=== PATIENT | female | born 1960 | race Caucasian/White ===

== ENCOUNTER 2025-02-24 11:09 | Outpatient (AMB) | payer MEDICARE, BC, SELFPAY ==
--- NOTE | 2025-02-24 11:23 | MHC.OFFVIS ---
Intake Visit Reasons: 6 months follow up Accompanied by: Spouse Allergies Sulfa (Sulfonamide Antibiotics) Allergy (Unknown, Verified 02/24/25 11:50) Unknown Medication List - Last Reconciled 02/24/25 by Aaliyah Joy CNP aspirin 325 mg PO DAILY ipratropium-albuterol 20-100 mcg/actuation (Combivent Respimat) 1 puff inhalation DAILY latanoprost 0.005% 1 drp ophthalmic (eye) QPM primidone 50 mg PO DAILY propranolol 40 mg PO DAILY HPI Comments Details: She tripped and fell down stairs on 01/19/2025, fractured R ankle and required surgical repair on 01/28/2025, currently NWB in walking boot. Had some vertigo in 09/2024, decreased propranolol to once a day. Symptoms resolved and tremors were stable. Increased tremors since fall, worse with stress, when nervous, or with pain. Notices tremors more in the evening time when eating dinner. has noticed some tremors in right leg since the fall. No issues with mobility before fall, was walking up to 6-7 miles/day and hiking. No difficulty getting up from chair or turning in bed. She has had tremors in her hands that started more than 10 years ago and had slowly gotten worse to the point that it affected her handwriting, ability to eat soup, and do fine motor activity. She quit caffeine intake, but it did not make a difference. She has a history of tremor in her father, mother, sister and son. [facility] Medical History (Updated 02/24/25 @ 11:26 by Aaliyah Joy CNP) Benign familial tremor Family History (Updated 02/24/25 @ 11:27 by Aaliyah Joy CNP) Father Tremor Mother Tremor Sister Tremor Son Tremor Review of Systems Const Denies chills, Denies daytime sleepiness, Denies difficulty sleeping, Denies fatigue, Denies fever(s), Denies frequent falls, Denies headache(s), Denies increased appetite, Denies poor appetite, Denies snoring, Denies weakness, Denies weight gain and Denies weight loss Eyes Denies loss of vision ENT Denies vertigo, Denies dizziness, Denies headache(s) and Denies neck pain Card Denies chest pain at rest, Denies chest pain with activity, Denies syncope, Denies leg edema, Denies palpitations, Denies dyspnea and Denies dyspnea on exertion Resp Denies cough, Denies dyspnea, Denies dyspnea on exertion and Denies snoring GI Denies abdominal pain, Denies constipation, Denies heartburn, Denies diarrhea and Denies nausea Denies urinary frequency, Denies urinary incontinence and Denies urinary urgency Musc Denies abnormal gait, Denies back pain, Denies myalgias, Denies arthralgias, Denies neck pain, Denies numbness and Denies tingling Neuro Denies abnormal gait, Denies vertigo, Denies dizziness, Denies syncope, Denies frequent falls, Denies headache(s), Denies lack of coordination, Denies loss of vision, Denies memory loss, Denies numbness, Denies Other visual disturbances, Denies restless legs, Denies seizure-like activity, Denies tingling, Denies paresthesias, Reports tremor(s) and Denies weakness Psych Denies anxiety, Denies depression, Denies auditory hallucinations, Denies memory loss and Denies visual hallucinations Endo Denies fatigue and Denies palpitations Physical Exam Const Other: General Appearance:? normal, in no acute distress. Heart:? S1, S2 normal, no murmurs. Lungs:? clear anteriorly and posteriorly. Musculoskeletal:? normal. Extremities:? no edema. Psych:? alert, oriented, cognitive function intact, cooperative with exam. Neuro Other: Abnormal Neurological Findings:?Fine tremors high frequency, low amplitude on sustained position, L > R. In wheelchair, RLE walking boot. Mental Status: alert and oriented X 3. Normal attention, orientation, memory, and affect. Cranial Nerves: Pupils are equal, round, and reactive to light. External ocular muscles are intact. Visual hillman are full, no ptosis. Face is symmetrical, no facial weakness or droop. Facial sensations are normal. Tongue protrudes in midline. Palate elevates symmetrically. Shoulder shrugging is normal Motor Examination: Normal muscle tone, bulk and strength. No atrophy or fasciculations. No drift of the extended upper extremities. DTR 2+. Plantars are flexor. Sensory Exam: Normal light touch, temperature, pinprick, vibration, and joint-position sensations. Rhomberg sign is absent. Coordination: No ataxia. No titubation. Ukctmy-qz-yunp, wpdn-fqeh-edbx test, and rapid alternating movements were normal. Gait Exam: In wheelchair, RLE walking boot. Cerebellar Signs: Igrjsj-[id number]-bkhm is okay. Extrapyramidal System: Tremor as above. No rigidity with normal facial expressions. No bradykinesia. No bradyphrenia. Normal arm swing and posture. No propulsion or retropulsion. Speech: Normal. Assessment & Plan Assessment & Plan (1) Benign familial tremor: Code(s): G25.0 - Essential tremor Category: Medical Plan: Increase primidone 50mg 1 tablet twice a day. Continue propranolol 40mg 1 tablet daily. Medications: New primidone 50 mg PO BID 180 tabs 1RF 90 days Coding Level of Care Code Est Pt Level 4 (18472) Diagnoses Benign familial tremor G25.0
--- OUTSIDE RECORDS SUMMARY | 2025-02-24 11:54 | XMS_ITS | Encounter Summary ---
Author Organization [facility] [place] [address] Care Team Providers Care Forest Manager Name Role Phone Soren Buck Primary Care Provider [phone] Reason for Referral * Consultation (Routine) - Closed Specialty Diagnoses / Procedures Referred By Edouard viveros Referred To Contact Orthopedic Surgery Diagnoses Right ankle pain Soren Buck PA [address] [place] [address] Phone: tel: fax: Kushal Phoenix MD [address] [place] [address] [address] [place] [address] Phone: tel: fax: Referral ID Status Reason Start Date Expiration Date V isits Requested Visits Authorized [id number] Closed Specialty Services Required 02/13/2025 02/13/2026 1 1 Encounter Details Date Type Department Care Team (Late st Contact Info) Description 02/13/2025 Telephone Adult Medicine [facility] [address] [place] [address] Soren Buck PA [address] [place] [address] Social History Tobacco Use Types Packs/Day Years Used Date Smoking Tobacco: Never Smokeless Tobacco: Never Alcohol Use Standard Drinks/Week Comments Yes 0 (1 standard drink = 0.6 oz pur e alcohol) social Housing Instability Answer Date Recorde d Are you worried that in the next 2 months you may not have stable housing? No 01/14/2025 Food Access & Nutrition Answer Date Rec orded Do you have access to a vari ety of food including fruits and vegetables? No 01/14/2025 Access to Healthcare Answer Date Record ed Within the last 3 months, ho w many times did you visit the emergency department for your medical care? 0 07/28/2024 Health Literacy Answer Date Recorded How often do you need to hav e someone help you when you read instructions, pamphlets, or other written material from your doctor or pharmacy? Never 01/14/2025 Caregiver: How often do you need to have someone help you when you read instructions, pamphlets, or other written material from your doctor or pharmacy? Not on file 01/14/2025 Financial Risk Answer Date Recorded How hard is it for you to pa y for the very basics like food, housing, medical care, and air conditioning / heating? Not very hard 01/14/2025 Transportation Answer Date Recorded Has the lack of transportati on kept you from meetings, work, or from getting things needed for daily living? No Has the lack of transportati on kept you from medical appointments or from getting medications? No 01/14/2025 Social Isolation Answer Date Recorded How often do you feel lonely or isolated from th ose around you? Never 01/14/2025 Food Risk Answer Date Recorded Within the past 12 months we worried whether our food would run out before we got money to buy more. Never true 01/14/2025 Within the past 12 months th e food we bought just didn't last and we didn't have money to get more. Never true 01/14/2025 Dependent Care Answer Date Recorded Do you need help finding or paying for care for your loved ones. For example, director of early childhood education or elderly care for an older adult? No 01/14/2025 Education Answer Date Recorded Do you think completing more education or training, like finishing a GED, going to college, or learning a trade, would be helpful for you? N/A 07/28/2024 Employment and Income Answer Date Recor ded During the last four weeks, have you been actively looking for work? No 01/14/2025 Living Situation Answer Date Recorded What is your living situation? 0 01/14/2025 Interpersonal Safety Answer Date Record ed Physical Abuse 10/31/2024 Verbal Abuse 10/31/2024 Comments No Sex and Gender Information Value Date Recorded Sex Assigned at Female 10/30/2024 4:39 PM EDT Legal Sex Female 4:48 AM EST Gender Identity Female 10/30/2024 4:39 PM EDT Sexual Orientation Straight 10/30/2024 4: 39 PM EDT documented as of this encounter Progress Notes * Dia Knowles - 02/13/2025 9:33 AM EDT What insurance does the patient have today? Payor: @[email or web address] Referrals cannot be processed if the insurance is not accurate. If the insurance listed above is NO BILLING INFORMATION FOUND FOR THIS ENCOUNTER then the patients correct insurance must be obtainedand registered in [facility] or their referral can not be processed. Name of person calling to request this referral? Fax -[facility] Referred To Provider (Include first and last name): Kushal Phoenix NPI (if known): [id number] Order/Specialty requested orthopedics Chief Complaint (Note: This is not a body part or a procedure): M25.571 right ankle pain Has the patient seen provider for this problem/Dx before? Yes Referred To Provider Address: Referred To Provider Referred To Provider Does patient have an appointment scheduled?: no If yes, what is the date of the appointment?: Is this a retro request? Yes 01/28/25 Number of visits requested: 12 Is this appointment related to: MVA or worker compensation? no documented in this encounter Plan of Treatment Upcoming Encounters Date Type Department Care Team (Late st Contact Info) Description 03/13/2025 10:[address] Scan [address] [place] [address] 03/17/2025 9:30 AM EDT Office Visit Pulmonology - [place] [address] [facility] [address] [place] [address] Bree Turner MD [address] [place] [address] 09/17/2025 8:00 AM EST Appointment Radiology Department - [address] [phone] 01/15/2026 7:30 AM EDT Office Visit Adult [facility] - [address] [phone] Soren Buck PA [address] [place] [address] Scheduled Referrals Name Type Priority Associated Diagnoses Order Schedule Ambulatory referral to Orthopedic Outpatient Referral Routine Right ankle pain Expected: 02/13/2025, Expires: 02/13/2026 documented as of this encounter Visit Diagnoses Diagnosis Right ankle pain- Primary Pain in joint, ankle and foot documented in this encounter Additional Health Concerns Assessment Noted Time PHQ-9 Depression Total Score: 0 01/15/20 7:31 AM EDT A fall risk assessment has been complete d for the patient 01/14/2025 7:30 AM EDT documented as of this encounter Care Teams Forest Manager Relationship Specialty Start Date End Date Soren Buck PA [address] [place] [id number] PCP - General Internal Medicine 10/04/21 documented as of this encounter
--- OUTSIDE RECORDS SUMMARY | 2025-02-24 11:54 | XMS_ITS ---
Author Name [facility] Organization Unknown Care Team Organization Name Specialty Phone Email Start Date End Da te [facility] Soren Buck Primary Care 04/25/2023 [facility] Bebo Mcdaniels Primary Care 09/27/202202/20 [facility] Carmen, PROVIDER Primary Care 05/30/202202/20
== END 2025-02-24 11:50 | disposition home or self-care (01) ==
LOC: HO.HSM 11:09
PROVIDERS: PCP Internal Medicine; Referring Provider Physician Assistant Medical; Visit Provider Registered Nurse
DX: G25.0 Essential tremor (principal)
CPT/HCPCS: 99214

== ENCOUNTER → 2025-02-24 11:09 | Outpatient (BNVA) | payer MEDICARE, BC, SELFPAY | PROVIDERS: PCP Internal Medicine; Referring Provider Physician Assistant Medical; Visit Provider Registered Nurse | DX: G25.0 Essential tremor (principal); Z79.899 Other long term (current) drug therapy | CPT/HCPCS: 99212 ==

== ENCOUNTER 2025-07-20 08:25 | Outpatient (AMB) | payer MEDICARE, BC, SELFPAY ==
--- OUTSIDE RECORDS SUMMARY | 2025-07-20 08:30 | XMS_ITS | Clinical Summary ---
Author Organization [place] [id number] Address [address] [place] [phone] Phone Care Team Providers Care Weather Forcaster Name Role Phone Soren Buck Primary Care Provider [phone] Allergies Active Allergy Reactions Criticality Noted Date Comments Sulfa (Sulfonamide Antibiotics) 02/27/2008 Sulfa Drugs Other Reaction(s): Rash/Dermatitis Medications albuterol HFA (PROAIR HFA ; PROVENTIL HFA ; VENTOLIN HFA) 90 mcg/actuation inhaler Inhale 2 Puffs into the lungs every 4 hours as needed for Cough, Wheezing or Shortness of Breath. 4 Active multivitamin with minerals (DAILY MULTIVITAMIN-[place] NERALS ORAL) None Entered Acti ve docosahexaenoic acid/epa (FISH OIL ORAL) 1 tab at each meal Active latanoprost (XALATAN) 0.005 % ophthalmic solution INSTILL 1 DROP IN BOTH EYES DAILY AT BEDTIME 0 Active primidone (MYSOLINE) 50 mg tablet 2 tablets (100 mg total). Active propranoloL (INDERAL) 40 mg tablet Take 1 Tablet by mouth 2 times daily. Active polyethylene glycol (Golytely) 236-22.74-6.74 -5.86 gram solution Take 4L by mouth once for one dose. May substitue any PEG. Starting at 6PM the night before your procedure drink 1 8oz glasses at your own pace until you complete half of the gallon. Finish 2nd half of the gallon 5 hours before your procedure. 4000 mL 5 Active bisacodyL (DULCOLAX) 5 mg EC tablet Take 2 tablets by mouth right before beginning bowel prep. See instructions provided by the office 2 tablet 5 Active calcium carbonate-vitam in D3 600 mg-20 mcg (800 unit) tablet,chewable Chew. Acti ve ipratropium-alb uteroL (Combivent Respimat) 20-100 mcg/actuation inhaler Inhale 1 puff by mouth 2 (two) times a day. 3 g 4 5 12/17/19 26 Active Active Problems Problem Noted Date Diagnosed Date Thyroid nodule 01/14/2025 Assessment & Plan (01/14/2025 7:57 AM EDT): Orders: Lipid panel with reflex to direct LDL; Future Comprehensive metabolic panel; Future Tremor 01/14/2025 Assessment & Plan (01/14/2025 7:57 AM EDT): Orders: Lipid panel with reflex to direct LDL; Future Comprehensive metabolic panel; Future Osteopenia 07/03/2024 Assessment & Plan (01/14/2025 7:57 AM EDT): Orders: Lipid panel with reflex to direct LDL; Future Comprehensive metabolic panel; Future Vaginal atrophy 08/25/2020 Dry eyes 07/28/2010 Resolved Problems Problem Noted Date Diagnosed Date Resolved Date COPD, mild 04/14/2024 01/14/2025 Encounters Date Type Department Care Team Description 06/05/2025 Telephone Adult Medicine [address] [phone] Soren Buck PA from Last 3 Months Immunizations Immunization Administration Dates Next Due Influenza Quadravalent, MDCK , 0.5ml, preservative free (Flucelvax) 6mo and older 04/03/2023,05/12/2022,04/06/2020,2018,05/11/2017 Influenza Quadravalent, MDCK , 0.5ml, with preservative (Flucelvax) 6mo and older 04/20/2021,05/02/2018 Influenza trivalent, 0.5mL ( Fluad) 65yo and older 03/27/2024 Influenza trivalent, 0.5mL, preservative free (Fluarix; FluLaval; Fluzone) ages 6mo and older (Afluria) 3 years and older 04/22/2016,04/08/2015,04/30/2014,2012,08/04/2012,08/02/2012,06/28/2011 Influenza, Unspecified 05/02/2018 Pneumococcal conjugate 20 va lent (Prevnar 20, PCV 20) 2mo and older 01/14/2024 Td Tetanus diptheria (Tdvax) 7yo and older 04/17/2019 Tdap Tetanus diptheria acell ular pertussis (Boostrix; Adacel) 7yo and older 02/27/2008 Zoster recombinant (Shingrix ) 19yo and older 06/16/2019,04/17/2019 Surgical History Surgery Date Site/Laterality Comments COLONOSCOPY 02/25/09 PROCEDURE: HISTORICAL COLONOSCOPY; COMMENT: normal; repeat in ten years OTHER SURGICAL HISTORY 01/2013 PROCEDURE: HISTORY OTHER; COMMENT: left laser iridotomy for closed angle though no glaucoma COLONOSCOPY 10/31/2024 dr. fish hemorrhoid repeat 10 yrs Medical History Medical History Date Comments Dry eyes 07/28/2010 DX:Dry eyes COPD (chronic obstructive pu lmonary disease) ([facility] V24, [facility] V28) Osteopenia Familial tremor Family History Medical History Relation Name Comments COPD Father smoker Heart attack Maternal Grandfather Arthritis Mother Colon polyps Mother Heart failure Mother Lung cancer Mother smoker Colon polyps Sister Breast cancer Neg Hx Colon cancer Neg Hx Ovarian cancer Neg Hx Pancreatic cancer Neg Hx Prostate cancer Neg Hx Uterine cancer Neg Hx Relation Name Status Comments Father Maternal Grandfather Mother Sister Alive Social History Tobacco Use Types Packs/Day Years Used Date Smoking Tobacco: Never Smokeless Tobacco: Never Tobacco Cessation:Counseling Given: Not Answered Alcohol Use Standard Drinks/Week Comments Yes 0 [...] care for your loved ones. For example, child & adolescent psychiatrist or elderly care for an older adult? [...] Date Recorded What is your living situation? Unrecognized valu e 01/14/2025 Interpersonal Safety Answer Date Record ed Physical Abuse Unrecognized value 10/31/2024 Verbal Abuse Unrecognized value 10/31/2024 Comments No Sex and Gender Information Value Date Recorded Sex Assigned at Female 10/30/2024 4:39 PM EDT Legal Sex Female 4:48 AM EST Gender Identity Female 10/30/2024 4:39 PM EDT Sexual Orientation Straight 10/30/2024 4: 39 PM EDT Obstetrics History Para Term AB IAB SAB Ectopic Multiple Livin g Live Births 2 2 2 2 Date Outcome GA Total Labor Labor/2nd/3rd Weight Sex Type Anes PTL Myesha A1 A5 Name Clin Term Term Last Filed Vital Signs Vital Sign Reading Time Taken Comments Blood Pressure 124/66 03/17/2025 9:30 AM EDT Pulse 56 03/17/2025 9:30 AM EDT Temperature 36.6 C (97.9 F) 03/17/2025 9:30 AM EDT Respiratory Rate 17 03/17/2025 9:30 AM EDT Oxygen Saturation 100% 03/17/2025 9:30 AM EDT Inhaled Oxygen Concentration - - Weight 70.3 kg (155 lb) 03/17/2025 9:30 AM EDT Height 152.4 cm (5') 03/17/2025 9:30 AM EDT Body Mass Index 30.27 03/17/2025 9:30 AM EDT Plan of Treatment Upcoming Encounters Date Type Department Care Team (Late st Contact Info) Description 09/17/2025 8:00 AM EST Appointment Radiology Department [address] [phone] 01/15/2026 7:30 AM EDT Office Visit Adult Medicine [address] [phone] Soren Buck PA [address] [place] [phone] Health Maintenance Due Date Last Done Comments COVID-19 Vaccine ( season) 2025 04/19/2023, 07/11/2022, 12/15/2021, Additional history exists Cervical Cancer Screening: HPV 08/25/2025 08/25/2020 Falls Risk Assessment 01/14/2026 01/14/2025 , 10/31/2024, 07/28/2024, Additional history exists Medicare Annual Wellness Visit 01/14/2026 01/14/2025 Social Influencers of Health Screening 01/14/2026 01/14/2025 Breast Cancer Screening 09/15/2026 09/15/19, 09/03/2023, 08/28/2022, Additional history exists DTaP,Tdap,and Td Vaccines (3 - Td or Tdap) 04/17/2029 04/17/2019, 02/27/2008 Cholesterol Screening (Lipid Panel) 03/17/2030 03/17/2025, 01/14/2025, 01/14/2024, Additional history exists RSV Immunization Adult Patients (1 - 1-dose 75+ series) 2033 Osteoporosis Screening (Bone Density Screening) 07/03/2034 07/03/2024 Colorectal Cancer Screening: Colonoscopy 10/31/2034 10/31/2024 Zoster Vaccines Completed 06/16/2019, 04/17/2019 Hepatitis C Screening Completed 05/23/2023 Pneumococcal Vaccine: 50+ Years Completed 01/14/2024 Depression Screening Completed 01/14/2025, 02/26/20 Influenza Vaccine Completed 04/21/2025, , 04/03/2023, Additional history exists HIB Vaccines Aged Out No longer eligi ble based on patient's age to complete this topic HPV Vaccines Aged Out No longer eligi ble based on patient's age to complete this topic Hepatitis A Vaccines Aged Out No long er eligible based on patient's age to complete this topic Hepatitis B Vaccines Aged Out No long er eligible based on patient's age to complete this topic IPV Vaccines Aged Out No longer eligi ble based on patient's age to complete this topic MMR Vaccines Aged Out No longer eligi ble based on patient's age to complete this topic Meningococcal ACWY Vaccine Aged Out N o longer eligible based on patient's age to complete this topic Meningococcal B Vaccine Aged Out No l onger eligible based on patient's age to complete this topic RSV Immunization Patients Under 20 months Aged Out No longer eligible based on patient's age to complete this topic Varicella Vaccines Aged Out No longer eligible based on patient's age to complete this topic Procedures Procedure Name Priority Date/Time Associated Diagnosis Comments LIPID PANEL WITH REFLEX TO DIRECT LDL Routine 03/17/2025 10:21 AM EDT Hyperlipidemia, unspecified hyperlipidemia type COLONOSCOPY Routine 10/31/2024 11:34 AM EDT Colon cancer screening MG MAMMO DIGITAL SCREENING W EMILY BILAT Routine 09/15/2024 9:08 AM EST Encounter for screening mammogram for breast cancer BD BONE DENSITY DXA AXIAL SKELETON Routine 07/03/2024 2:31 PM EST Encounter for general adult medical examination without abnormal findings Encounter for screening for osteoporosis Tremor, unspecified Encounter for immunization DEPRESSION SCREENING Routine 02/26/2024 FALLS RISK ASSESSMENT Routine 02/26/2024 HEPATITIS C SCREENING Routine 05/23/2023 HPV Routine 08/25/2020 from Last 3 Months or Most Recently Relevant to Health Maintenance Results * (ABNORMAL) Lipid panel with reflex to direct LDL (03/17/2025 10:21 AM EDT) Cholesterol 237(H) 0 - 200 mg/dL LAB CHEMISTRY METHOD 03/17/2025 3:35 PM EDT [facility] Triglycerides 101 0 - 150 mg/dL LAB CHEMISTRY METHOD 03/17/2025 3:35 PM EDT [facility] HDL 89 >=40 mg/dL LAB CHEMISTRY METHOD 03/17/2025 3:35 PM EDT [facility] LDL Calculated 128(H) 0 - 100 mg/dL LAB CHEMISTRY METHOD 03/17/2025 3:35 PM EDT [facility] Comment:Estimated LDL Calcul ated using equation: Total cholesterol - HDL cholesterol - (Triglycerides/5) VLDL Cholesterol Jhony 20.2 mg/dL LAB CHEMISTRY METHOD 03/17/2025 3:35 PM EDT [facility] Non HDL Chol. (LDL+VLDL) 148(H) <145 mg/dL LAB CHEMISTRY METHOD 03/17/2025 3:35 PM EDT [facility] Chol/HDL Ratio 2.7 0.0 - 4.4 LAB CHEMISTRY METHOD 03/17/2025 3:35 PM EDT [facility] Blood Venous blood specimen / Unknown Venipuncture / Unknown 03/17/2025 10:21 AM EDT 03/17/2025 10:39 AM EDT Soren LAYTON LAB BLOOD ORDERABLES Kelly l Result [facility] [address] [place] [address], * COLONOSCOPY Anesthesia - MAC; [facility] ENDOSCOPY (10/31/2024 11:34 AM EDT) Anatomical Region Laterality Modality Endoscopy 10/31/2024 11:0 4 AM EDT Impressions 10/31/2024 11:34 AM EDT - Hemorrhoids found on perianal exam. - The entire examined colon is normal on direct and retroflexion views. - No specimens collected. Recommendation: - - Discharge patient to home. - Resume previous diet. - Continue present medications. - Repeat colonoscopy in 10 years for screening purposes. - Return to primary care physician. Narrative 10/31/2024 11:34 AM EDT [facility] GI Patient Name: Mary Herrera Procedure Date: 10/31/2024 11:04 AM Date of : 1960 Age: 64 Gender: Female Note Status: Finalized Attending MD: Zoe Fish DO, [id number] Procedure Date No Time: 10/31/2024 Procedure: Colonoscopy Indications: Screening for colorectal malignant neoplasm Providers: Zoe Fish DO Referring MD: Soren Buck PA-C Medicines: Monitored Anesthesia Care Complications: No immediate complications. Estimated blood loss: None. Estimated Blood Loss: Estimated blood loss: none. Procedure: Pre-Anesthesia Assessment: - - Prior to the procedure, a History and Physical was performed, and patient medications and allergies were reviewed. The patient is competent. The risks and benefits of the procedure and the sedation options and risks were discussed with the patient. All questions were answered and informed consent was obtained. Patient identification and proposed procedure were verified by the physician, the nurse, the anesthesiologist, the e commerce merchandising coordinator and the medical records technician in the pre-procedure area in the endoscopy suite. Mental Status Examination: alert and oriented. Airway Examination: normal oropharyngeal airway and neck mobility. Respiratory Examination: clear to auscultation. CV Examination: normal. Prophylactic Antibiotics: The patient does not require prophylactic antibiotics. Prior Anticoagulants: The patient has taken no anticoagulant or antiplatelet agents. ASA Grade Assessment: II - A patient with severe systemic disease. After reviewing the risks and benefits, the patient was deemed in satisfactory condition to undergo the procedure. The anesthesia plan was to use monitored anesthesia care (MAC). Immediately prior to administration of medications, the patient was re-assessed for adequacy to receive sedatives. The heart rate, respiratory rate, oxygen saturations, blood pressure, adequacy of pulmonary ventilation, and response to care were monitored throughout the procedure. The physical status of the patient was re-assessed after the procedure. After I obtained informed consent, the scope was passed under direct vision. Throughout the procedure, the patient's blood pressure, pulse, and oxygen saturations were monitored continuously. The Colonoscope was introduced through the anus and advanced to the cecum, identified by appendiceal orifice and ileocecal valve. The colonoscopy was performed without difficulty. The patient tolerated the procedure well. The quality of the bowel preparation was good. Findings: Hemorrhoids were found on perianal exam. The entire examined colon appeared normal on direct and retroflexion views. Procedure Code(s): --- Professional --- G0121, Colorectal cancer screening; colonoscopy on individual not meeting criteria for high risk Diagnosis Code(s): --- Professional --- Z12.11, Encounter for screening for malignant neoplasm of colon K64.9, Unspecified hemorrhoids CPT copyright 2020 [employer]. All rights reserved. The codes documented in this report are preliminary and upon salesperson recreational vehicles review may be revised to meet current compliance requirements. ZOE Fish DO 10/31/2024 11:34:00 AM This report has been signed electronically.Zoe Fish DO Number of Addenda: 0 Note Initiated On: 10/31/2024 11:04 AM Scope Withdrawal Time: 0 hours 6 minutes 19 seconds Scope In: 11:24:44 AM Scope Out: 11:32:45 AM Endoscopy Department at [facility] - [address] [place] [phone] Procedure Note Zoe Fish DO - 10/31/2024 [facility] GI Patient Name: Mary Herrera Procedure Date: 10/31/2024 11:04 AM Date of : 1960 Age: 64 Gender: Female Note Status: Finalized Attending MD: Zoe Fish DO, [id number] Procedure Date No Time: 10/31/2024 Procedure: Colonoscopy Indications: Screening for colorectal malignant neoplasm Providers: Zoe Fish DO Referring MD: Soren Buck PA-C Medicines: Monitored Anesthesia Care Complications: No immediate complications. Estimated blood loss:None. Estimated Blood Loss: Estimated blood loss: none. Procedure: Pre-Anesthesia Assessment: - - Prior to the procedure, a History and Physicalwas performed, and patient medications and allergieswere reviewed. The patient is competent. The risks and benefits of the procedure and the sedation optionsand risks were discussed with the patient. Allquestions were answered and informed consent was obtained. Patient identification and proposed procedure were verified by the physician, the nurse, the anesthesiologist, the e commerce merchandising coordinator and thetechnician in the pre-procedure area in the endoscopy suite. Mental Status Examination: alert and oriented.Airway Examination: normal oropharyngeal airway and neck mobility. Respiratory Examination: clear to auscultation. CV Examination: normal. Prophylactic Antibiotics: The patient does not requireprophylactic antibiotics. Prior Anticoagulants: The patient has taken no anticoagulant or antiplatelet agents. ASA Grade Assessment: II - A patient with severesystemic disease. After reviewing the risks and benefits,the patient was deemed in satisfactory condition to undergo the procedure. The anesthesia plan was touse monitored anesthesia care (MAC). Immediately priorto administration of medications, the patient was re-assessed for adequacy to receive sedatives. The heart rate, respiratory rate, oxygen saturations, blood pressure, adequacy of pulmonary ventilation,and response to care were monitored throughout the procedure. The physical status of the patient was re-assessed after the procedure. After I obtained informed consent, the scope was passed under direct vision. Throughout theprocedure, the patient's blood pressure, pulse, and oxygen saturations were monitored continuously. The Colonoscope was introduced through the anus and advanced to the cecum, identified by appendiceal orifice and ileocecal valve. The colonoscopy was performed without difficulty. The patient tolerated the procedure well. The quality of the bowel preparation was good. Findings: Hemorrhoids were found on perianal exam. The entire examined colon appeared normal on direct and retroflexion views. Procedure Code(s): --- Professional --- G0121, Colorectal cancer screening; colonoscopy on individual not meeting criteria for high risk Diagnosis Code(s): --- Professional --- Z12.11, Encounter for screening for malignantneoplasm of colon K64.9, Unspecified hemorrhoids CPT copyright 2020 [employer]. All rights reserved. The codes documented in this report are preliminary and upon salesperson recreational vehicles reviewmay be revised to meet current compliance requirements. ZOE Fish DO 10/31/2024 11:34:00 AM This report has been signed electronically.Zoe Fish DO Number of Addenda: 0 Note Initiated On: 10/31/2024 11:04 AM Scope Withdrawal Time: 0 hours 6 minutes 19 seconds Scope In: 11:24:44 AM Scope Out: 11:32:45 AM Endoscopy Department at [facility] - [address] [place] [phone] IMPRESSION: - Hemorrhoids found on perianal exam. - The entire examined colon is normal on direct and retroflexion views. - No specimens collected. Recommendation: - - Discharge patient to home. - Resume previous diet. - Continue present medications. - Repeat colonoscopy in 10 years for screening purposes. - Return to primary care physician. Zoe Fish DO GI~PROCEDURE ORDERABLES Final Re sult * MG Mammo Digital Screening w Emily bilat (09/15/2024 9:08 AM EST) Anatomical Region Laterality Modality Breast Bilateral Mammography 09/15/2024 8:07 PM EST Impressions 09/15/2024 8:08 PM EST No mammographic evidence of malignancy. BREAST DENSITY: B - There are scattered areas of fibroglandular density. BI-RADS CATEGORY: 1 - NEGATIVE RECOMMENDATION: Screening bilateral mammogram is recommended in 1 year. MAMMO LOCATION: [facility], [address] [place] [address], [id number], . -------- FINAL REPORT -------- Dictated By: Melissa Long Dictated Date: 09/15/2024 20:07 ET Assigned Physician: Melissa Long Reviewed and Electronically Signed By: Melissa Long Signed Date: 09/15/2024 20:08 ET Workstation ID: [id number] Transcribed By: Self Edit Transcribed Date: 09/15/2024 20:07 ET Narrative 09/15/2024 8:08 PM EST EXAM: Screening Mammogram CLINICAL: 64 years old, Female, routine annual exam. COMPARISON: 09/03/2023 and as far back as 08/03/2020 TECHNIQUE: Bilateral MLO and CC views were obtained digitally with 3-D mammogram (digital breast tomosynthesis). Computer-aided detection was utilized in evaluation of this exam (CAD). FINDINGS: No new suspicious mass, architectural distortion, or suspicious calcifications. Procedure Note Melissa Long MD - 09/15/2024 EXAM: Screening Mammogram CLINICAL: 64 years old, Female, routine annual exam. COMPARISON: 09/03/2023 and as far back as 08/03/2020 TECHNIQUE: Bilateral MLO and CC views were obtained digitally with 3-Dmammogram (digital breast tomosynthesis). Computer-aided detection wasutilized in evaluation of this exam (CAD). FINDINGS: No new suspicious mass, architectural distortion, or suspiciouscalcifications. IMPRESSION: No mammographic evidence of malignancy. BREAST DENSITY: B - There are scattered areas of fibroglandular density. BI-RADS CATEGORY: 1 - NEGATIVE RECOMMENDATION: Screening bilateral mammogram is recommended in 1 year. MAMMO LOCATION: [facility], [address] [place] [address], [id number], . -------- FINAL REPORT -------- Dictated By: Melissa Long Dictated Date: 09/15/2024 20:07 ET Assigned Physician: Melissa Long Reviewed and Electronically Signed By: Melissa Long Signed Date: 09/15/2024 20:08 ET Workstation ID: [id number] Transcribed By: Self Edit Transcribed Date: 09/15/2024 20:07 ET Soren LAYTON IMG BI PROCEDURES Final R esult * BD Bone Density DXA Axial Skeleton (07/03/2024 2:31 PM EST) Anatomical Region Laterality Modality Wrist, Hip, L-spine Bone Densito metry 07/03/2024 4:18 PM EST Impressions 07/03/2024 4:19 PM EST Osteopenia Reference Information: The T-score is the number of standard deviations above or below the standard which is normal for young adults at their peak bone mineral density. The World Health Organization (WHO) interprets the T-scores as follows: At or above -1 SD Normal bone density Between -1 and -2.5 SD Osteopenia At or below -2.5 SD Osteoporosis -------- FINAL REPORT -------- Dictated By: Isabel Mcmillan Dictated Date: 07/03/2024 16:18 ET Assigned Physician: Isabel Mcmillan Reviewed and Electronically Signed By: Isabel Mcmillan Signed Date: 07/03/2024 16:19 ET Workstation ID: [id number] Transcribed By: Self Edit Transcribed Date: 07/03/2024 16:18 ET Narrative 07/03/2024 4:19 PM EST STUDY: DUAL ENERGY X-RAY ABSORPTIOMETRY / DXA REASON FOR EXAM: Female, 64 years old Z00.00; Z13.820; R25.1; Z23 TECHNIQUE: Bone Mineral Density (BMD) measurements of the lumbar spine and left hip were obtained using [employer] Discovery W (S/N [id number]). COMPARISON: None FINDINGS: L1-L4 BMD: 0.884 g/cm2 L1-L4 T score: -1.5. This corresponds to osteopenia. Left femoral neck BMD: 0.641 g/cm2 Left femoral neck T score: -1.9. This corresponds to osteopenia. Left total hip BMD: 0.816 g/cm2 Left total hip T score: -1.0. This corresponds to Normal bone density. FRAX score: 10 year risk of major osteoporotic fracture 9.7%, 10 year risk of hip fracture 1.3% Procedure Note Isabel Mcmillan MD - 07/03/2024 STUDY: DUAL ENERGY X-RAY ABSORPTIOMETRY / DXA REASON FOR EXAM: Female, 64 years old Z00.00; Z13.820; R25.1; Z23 TECHNIQUE: Bone Mineral Density (BMD) measurements of the lumbar spineand left hip were obtained using [employer] Discovery W (S/N [id number]). COMPARISON: None FINDINGS: L1-L4 BMD: 0.884 g/cm2 L1-L4 T score: -1.5. This corresponds to osteopenia. Left femoral neck BMD: 0.641 g/cm2 Left femoral neck T score: -1.9. This corresponds to osteopenia. Left total hip BMD: 0.816 g/cm2 Left total hip T score: -1.0. This corresponds to Normal bone density. FRAX score: 10 year risk of major osteoporotic fracture 9.7%, 10 year riskof hip fracture 1.3% IMPRESSION: Osteopenia Reference Information: The T-score is the number of standard deviations above or below thestandard which is normal for young adults at their peak bone mineraldensity. The World Health Organization (WHO) interprets the T-scores asfollows: At or above -1 SD Normal bone density Between -1 and -2.5 SD Osteopenia At or below -2.5 SD Osteoporosis -------- FINAL REPORT -------- Dictated By: Isabel Mcmillan Dictated Date: 07/03/2024 16:18 ET Assigned Physician: Isabel Mcmillan Reviewed and Electronically Signed By: Isabel Mcmillan Signed Date: 07/03/2024 16:19 ET Workstation ID: [id number] Transcribed By: Self Edit Transcribed Date: 07/03/2024 16:18 ET Soren LAYTON IMG DXA PROCEDURES Final Result * Falls Risk Assessment (02/26/2024) [facility] [place] Risk Assessment abstracted Historical Provider HEALTH MAINTENANCE Final Result * Depression Screening (02/26/2024) [employer] [facility] Depression Screening abstracted Historical Provider MD HEALTH MAINTENANCE Final Result * Hepatitis C Screening (05/23/2023) [facility] Hepatitis C Screening abstracted Historical Provider MD HEALTH MAINTENANCE Final Result * Cervical Cancer Screening: HPV (08/25/2020) Pathologist [facility] Cervical Cancer Screening: HPV negative, abstracted Result [facility] Historical Provider HEALTH MAINTENANCE Final Result from Last 3 Months or Most Recently Relevant to Health Maintenance Insurance MEDICARE [facility] Care Teams Weather Forcaster Relationship Specialty Start Date End Date Soren Buck PA [address] [place] [address] PCP - General Internal Medicine 10/04/21
--- NOTE | 2025-07-20 08:33 | MHC.OFFVIS ---
Intake Visit Reasons: BFT Allergies Sulfa (Sulfonamide Antibiotics) Allergy (Unknown, Verified 07/20/25 08:35) Unknown Medication List - Last Reconciled 07/20/25 by Aaliyah Joy CNP ipratropium-albuterol 20-100 mcg/actuation (Combivent Respimat) 1 puff inhalation DAILY latanoprost 0.005% 1 drp ophthalmic (eye) QPM primidone 50 mg PO BID 90 days propranolol 40 mg PO DAILY HPI Comments Details: She was doing okay. Increased dose of primidone was helping some. Tremors in hands were still there, but less. She sometimes had to hold cup steady with two hands. She noticed tremors were worse if she went out to eat at restaurant, possibly due to stress. No significant functional impairment. No tremors in legs. No mobility issues. No difficulty getting up from chair or turning in bed. No dizziness or vertigo. She tripped and fell down stairs on 01/19/2025, fractured R ankle and required surgical repair on 01/28/2025. Her noticed some tremors in right leg after the fall. No issues with mobility before the fall, was walking 6-7 miles/day and hiking. Had some vertigo in 09/2024, decreased propranolol to once a day. Symptoms resolved and tremors were stable. No difficulty getting up from chair or turning in bed. She has had tremors in her hands that started more than 10 years ago and had slowly gotten worse to the point that it affected her handwriting, ability to eat soup, and do fine motor activity. She quit caffeine intake, but it did not make a difference. She has a history of tremor in her father, mother, sister, and son. [facility] Medical History (Updated 02/24/25 @ 11:26 by Aaliyah Joy CNP) Benign familial tremor Family History (Updated 02/24/25 @ 11:27 by Aaliyah Joy CNP) Father Tremor Mother Tremor Sister Tremor Son Tremor Review of Systems Const Denies chills, Denies daytime sleepiness, Denies difficulty sleeping, Denies fatigue, Denies fever(s), Denies frequent falls, Denies headache(s), Denies increased appetite, Denies poor appetite, Denies snoring, Denies weakness, Denies weight gain and Denies weight loss Eyes Denies loss of vision ENT Denies vertigo, Denies dizziness, Denies headache(s) and Denies neck pain Card Denies chest pain at rest, Denies chest pain with activity, Denies syncope, Denies leg edema, Denies palpitations, Denies dyspnea and Denies dyspnea on exertion Resp Denies cough, Denies dyspnea, Denies dyspnea on exertion and Denies snoring GI Denies abdominal pain, Denies constipation, Denies heartburn, Denies diarrhea and Denies nausea Denies urinary frequency, Denies urinary incontinence and Denies urinary urgency Musc Denies abnormal gait, Denies back pain, Denies myalgias, Denies arthralgias, Denies neck pain, Denies numbness and Denies tingling Neuro Denies abnormal gait, Denies vertigo, Denies dizziness, Denies syncope, Denies frequent falls, Denies headache(s), Denies lack of coordination, Denies loss of vision, Denies memory loss, Denies numbness, Denies Other visual disturbances, Denies restless legs, Denies seizure-like activity, Denies tingling, Denies paresthesias, Reports tremor(s) and Denies weakness Psych Denies anxiety, Denies depression, Denies auditory hallucinations, Denies memory loss and Denies visual hallucinations Endo Denies fatigue and Denies palpitations Physical Exam Const Other: General Appearance:? normal, in no acute distress. Heart:? S1, S2 normal, no murmurs. Lungs:? clear anteriorly and posteriorly. Musculoskeletal:? normal. Extremities:? no edema. Psych:? alert, oriented, cognitive function intact, cooperative with exam. Neuro Other: Abnormal Neurological Findings:?Fine tremors high frequency, low amplitude on sustained position, L > R. Mental Status: alert and oriented X 3. Normal attention, orientation, memory, and affect. Cranial Nerves: Pupils are equal, round, and reactive to light. External ocular muscles are intact. Visual hillman are full, no ptosis. Face is symmetrical, no facial weakness or droop. Facial sensations are normal. Tongue protrudes in midline. Palate elevates symmetrically. Shoulder shrugging is normal Motor Examination: Normal muscle tone, bulk and strength. No atrophy or fasciculations. No drift of the extended upper extremities. DTR 2+. Plantars are flexor. Sensory Exam: Normal light touch, temperature, pinprick, vibration, and joint-position sensations. Rhomberg sign is absent. Coordination: No ataxia. No titubation. Gait Exam: Within normal limits. Cerebellar Signs: [id number] is okay. Extrapyramidal System: Tremor as above. No rigidity with normal facial expressions. No bradykinesia. No bradyphrenia. Normal arm swing and posture. No propulsion or retropulsion. Speech: Mild speech tremor. 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 Continue primidone 50mg 1 tablet twice a day. Continue propranolol 40mg 1 tablet daily. Follow up in 3 months or sooner as needed. Medications: Changed From propranolol 40 mg PO DAILY To propranolol 40 mg PO DAILY 90 tabs 1RF 90 days Refilled primidone 50 mg PO BID 180 tabs 1RF 90 days Coding Level of Care Code Est Pt Level 4 (11221) Diagnoses Benign familial tremor G25.0
== END 2025-07-20 08:43 | disposition home or self-care (01) ==
LOC: HO.HSM 08:26
PROVIDERS: PCP Internal Medicine; Visit Provider Registered Nurse
DX: G25.0 Essential tremor (principal)
CPT/HCPCS: 99214

== ENCOUNTER → 2025-07-20 08:25 | Outpatient (BNVA) | payer MEDICARE, BC, SELFPAY | PROVIDERS: PCP Internal Medicine; Visit Provider Registered Nurse | DX: G25.0 Essential tremor (principal) | CPT/HCPCS: 99212 ==